=== PATIENT | female | born 1995 | race Caucasian/White ===

== ENCOUNTER 2016-12-04 18:45 | Emergency (ER) | payer BC, MEDICAID, OTHER ==
[2016-12-04 19:01] VITALS: BP 125/74
--- NOTE | 2016-12-04 19:31 | UC ---
Complaint Female HPI - History Of Current Complaint Chief Complaint: UCGU Stated Complaint: LOW BACK PAIN/FREQUENCY Time Seen by Provider: 12/04/16 19:06 Hx Obtained From: Patient Hx Last Menstrual Period: 2 WKS AGO ?: No Onset/Duration: Sudden Onset - last night onset bilateral flank pain radiating around to the front. Throbbing achy pain., Still Present Timing: Constant - now with urinary symptoms of frequency and urgency. Character: Dull Aggravating Factor(s): Urination Alleviating Factor(s): Nothing Associated Signs And Symptoms: Positive: Back Pain, Vaginal Discharge Related Hx: - 1, Para - 1 - Risk Factors Ectopic Risk Factor: Negative Ovarian Torsion Risk Factor: Reproductive Age - Allergies/Home Medications Allergies/Adverse Reactions: Allergies Allergy/AdvReac Type Severity Reaction Status Date / Time Morphine Allergy Itching Verified 12/04/16 19:01 PMH/Surg Hx/FS Hx/Imm Hx Endocrine History Of: Denies: Thyroid Disease Respiratory History Of: Denies: Asthma Neurological History Of: Reports: Migraine - Surgical History Surgical History: Yes Surgery Procedure, Year, and Place: - Family History Known Family History: Negative: Cardiac Disease, Hypertension, Diabetes - Social History Occupation: Employed Full-time Lives: With Family Alcohol Use: Occasionally Substance Use Type: None Smoking Status (MU): Heavy Every Day Tobacco Smoker Type: Cigarettes Amount Used/How Often: 1/2 pack daily Length of Time of Smoking/Using Tobacco: started ~ age 17 Have You Smoked in the Last Year: Yes Household Exposure Type: Cigarettes Cessation Counseling: Patient Advised to Stop - Immunization History Most Recent Influenza Vaccination: fall 2014 Review of Systems Genitourinary: Frequency, Urgency All Other Systems Reviewed And Are Negative: Yes Physical Exam Triage Information Reviewed: Yes Appearance: Well-Appearing, Well-Nourished, Pain Distress - mild Vital Signs: Initial Vital Signs Temp 98.2 F 12/04/16 18:55 Pulse 100 12/04/16 18:55 Resp 16 12/04/16 18:55 BP 125/74 12/04/16 18:55 Pulse Ox 100 12/04/16 18:55 Vital Signs Reviewed: Yes Eyes: Positive: Conjunctiva Clear ENT: Positive: Pharynx normal, TMs normal Neck exam: Normal Respiratory: Positive: Lungs clear Cardiovascular Exam: Normal Abdomen Description: Positive: CVA Tenderness (R), CVA Tenderness (L). Negative : Nontender - suprapubic/tenderness Bowel Sounds: Positive: Present Musculoskeletal: Positive: Other: - muscular back tenderness in the CVA area. Neurological Exam: Normal Psychological Exam: Normal Skin Exam: Normal Complaint Female Dx - Differential Dx/Diagnosis Differential Diagnosis/HQI/PQRI: Renal Colic, Ureteral Stone, Urinary Tract Infection Provider Diagnoses: UTI. thoracic back pain. Discharge - Discharge Plan Condition: Stable Disposition: HOME Prescriptions: Nitrofurantoin Monohyd Macro [Macrobid] 100 mg PO BID #14 cap Patient Education Materials: Urinary Tract Infection in Women (ED), Nitrofurantoin Combination (By mouth) Additional Instructions: Use warm packs for the muscular back pain.
[2016-12-04] MEDS ORDERED: Nitrofurantoin Macrocrystals* 50 MG CAP PO ONE (19:49)
--- NOTE | 2016-12-04 19:59 | RAD ---
INDICATION: Back and flank abdominal pain. COMPARISON: There are no prior studies available for comparison. TECHNIQUE: Frontal supine films of the abdomen were obtained. FINDINGS: The small bowel and colon appear nondistended. No significant abnormal calcifications are seen. IMPRESSION: NO CALCULI ARE SEEN.
== END 2016-12-04 20:02 | disposition home or self-care (01) ==
LOC: UCCORT 18:45
DX: N39.0 Urinary tract infection, site not specified (principal); M54.6 Pain in thoracic spine; G43.909 Migraine, unspecified, not intractable, without status migrainosus; Z88.5 Allergy status to narcotic agent; F17.210 Nicotine dependence, cigarettes, uncomplicated
CPT/HCPCS: 74000; 81003; 87086; 99212; A9270-GY; G0463

== ENCOUNTER 2017-01-16 20:12 | Emergency (ER) | payer BC ==
[2017-01-16 20:32] VITALS: BP 122/81
[2017-01-16] MEDS ORDERED: Phenazopyridine TAB* 100 MG PO ONE (21:17)
[2017-01-16] MEDS ORDERED: Sulfamethox/Trimethoprim DS 800/160* TAB PO ONE (21:17)
--- NOTE | 2017-01-16 21:27 | UC ---
Complaint Female HPI - HPI Summary HPI Summary: This is an otherwise healthy 21 yo female who presented with 1d h/o painful urination. She reports that pain as severe and persistent stating that it feels that something is "stuck". No fever, n/v. She has mild vaginal dc. No rashes or lesions. She reports she has one male partner and does not use any form of BC. She reports her last menstrual period was 9 days ago. She has had one prior UTI with similar but less severe symptoms - History Of Current Complaint Chief Complaint: UCGU Stated Complaint: UTI SYMPTOMS Time Seen by Provider: 01/16/17 20:44 Hx Last Menstrual Period: 01/07/17 - Allergies/Home Medications Allergies/Adverse Reactions: Allergies Allergy/AdvReac Type Severity Reaction Status Date / Time Morphine Allergy Itching Verified 01/16/17 20:32 Home Medications: Home Medications Methenamine-Sodium Salicylate [Azo Urinary Tract Defense 162-162.5 mg] 1 tab PO ONCE 01/16/17 [History Confirmed 01/16/17] PMH/Surg Hx/FS Hx/Imm Hx Previously Healthy: Yes - Surgical History Surgical History: Yes Surgery Procedure, Year, and Place: - Family History Known Family History: Negative: Cardiac Disease, Hypertension, Diabetes - Social History Alcohol Use: Rare Substance Use Type: None Smoking Status (MU): Heavy Every Day Tobacco Smoker Type: Cigarettes Amount Used/How Often: 1/2 pack daily Length of Time of Smoking/Using Tobacco: started ~ age 17 Have You Smoked in the Last Year: Yes Household Exposure Type: Cigarettes - Immunization History Most Recent Influenza Vaccination: fall 2014 Review of Systems Constitutional: Negative Skin: Negative Eyes: Negative ENT: Negative Respiratory: Negative Cardiovascular: Negative Gastrointestinal: Abdominal Pain Genitourinary: Dysuria, Frequency Neurovascular: Negative Musculoskeletal: Negative Neurological: Negative Psychological: Negative All Other Systems Reviewed And Are Negative: Yes Physical Exam Triage Information Reviewed: Yes Appearance: Pain Distress - crying Vital Signs: Initial Vital Signs Temp 97.6 F 01/16/17 20:26 Pulse 75 01/16/17 20:26 Resp 14 01/16/17 20:26 BP 122/81 01/16/17 20:26 Pulse Ox 100 01/16/17 20:26 Vital Signs Reviewed: Yes Respiratory: Positive: Chest non-tender, Normal breath sounds. Negative: Crackles, Rhonchi, Stridor, Wheezing Cardiovascular: Positive: RRR, No Murmur Abdomen Description: Positive: Other: - some suprapubic pain with palpation Musculoskeletal: Positive: Strength Intact, ROM Intact Neurological Exam: Normal Skin Exam: Normal - Additional Comments Vaginal exam: external genitalia WNL, vaginal mucosa pink, cervix identified, thin white discharge without odor noted. No cervical irritation. Mild L adnexal TTP, no CMT. Endocervical sample collected for GC/Chl and vaginal sample for affirm Diagnostics - Laboratory Diagnostic Studies Completed/Ordered: UA - +LE, +blood, +WBCs Complaint Female Dx - Course Course Of Treatment: This is an otherwise healthy 21 yo female with a 1 d h/o urinary symptoms but severe pain out of portion to a typical UTI - Differential Dx/Diagnosis Differential Diagnosis/HQI/PQRI: Cervicitis, Pelvic Inflammatory Disease, Sexually Transmitted Disease, Urinary Tract Infection Provider Diagnoses: 1. Suspected UTI - treat empirically with Bactrim, pending GC/Chl and Affirm testing Discharge - Discharge Plan Condition: Stable Disposition: HOME Prescriptions: Phenazopyridine 200 mg (NF) [Pyridium 200 MG tab] 200 mg PO TID PRN #10 tab PRN Reason: Pain Sulfamethox/Trimethoprim DS* [Bactrim DS 800/160 TAB*] 1 tab PO BID #10 tab Patient Education Materials: Urinary Tract Infection in Women (ED) Referrals: No Primary Care Phys,NOPCP [Primary Care Provider] - Additional Instructions: Activity: As tolerated Instructions: 1. Take antibiotics and pyridium as directed 2. Results from your testing will be available within the next 1-2 days
[2017-01-18] MEDS ORDERED: Fluconazole 150 MG (NF) 150 MG TAB PO ONE (10:27)
--- NOTE | 2017-01-18 10:30 | UC ---
Progress - Progress Note Progress Note: notify patient urine culture pending see has yeast vaginitis and BV flagyl and diflucan ERxed
== END 2017-01-16 21:38 | disposition home or self-care (01) ==
LOC: UCCORT 20:12
DX: B37.3 Candidiasis of vulva and vagina (principal); N76.0 Acute vaginitis; Z72.0 Tobacco use
CPT/HCPCS: 81003; 87077; 87086; 87186; 87480; 87491; 87510; 87591; 87661; 99212; A9270-GY; G0463